=== PATIENT | male | born 1970 | race Caucasian/White ===

== ENCOUNTER 2021-07-21 19:08 | Emergency (ER) | payer MEDICAID, SELFPAY ==
--- NOTE | ~2021-07-21 | CT_ITS ---
EXAMINATION: CT ABDOMEN AND PELVIS WITH CONTRAST CLINICAL INFORMATION: Left upper quadrant pain. COMPARISON: CT abdomen pelvis July 17, 2021, July 19, 2021 TECHNIQUE: Multidetector volumetric images were obtained from the superior aspect of the liver through the pubic symphysis following administration 85 mL of Omnipaque 350 intravenous contrast. Sagittal and coronal reformatted images were obtained on the technologist's workstation. Oral contrast: No This CT examination was performed using dose optimization techniques as appropriate, variously including the following: *Automated exposure control *Adjustment of mA and/or kV according to patient size (this includes techniques or standardized protocols for targeted exams where dose is matched to indication/reason for exam; i.e. extremities or head) *Use of iterative reconstruction technique DLP: 659 mGy-cm FINDINGS: LUNG BASES: The visualized lung bases are unremarkable. LIVER, GALLBLADDER, AND BILIARY TREE: The liver is normal in size, shape, and attenuation. No focal hepatic lesion or biliary ductal dilatation is present. The gallbladder is unremarkable with no evidence of radiopaque gallstones, gallbladder wall thickening, or obvious pericholecystic inflammatory changes. PANCREAS: Unremarkable. SPLEEN: Unremarkable. ADRENAL GLANDS: Unremarkable. KIDNEYS AND URETERS: The kidneys are normal in size, shape, and attenuation. No hydronephrosis, hydroureter, or calculi seen. No perinephric stranding. BLADDER: Bladder is underdistended. Mild bladder wall thickening diffusely. No edema around the bladder. No bladder calculus or mass. GASTROINTESTINAL TRACT: The small and large bowel are unremarkable. The appendix is surgically absent. ABDOMINAL WALL: No significant hernia is appreciated. LYMPH NODES: Normal. VASCULAR: Unremarkable. PELVIC VISCERA: Prostate measures 4.6 cm transverse OSSEOUS STRUCTURES: Unremarkable. CT/CT abdomen pelvis w con IMPRESSION: No acute abnormality CT scan abdomen pelvis.
[2021-07-21 19:42] VITALS: BP 134/79; PULSE 75; RESP 18; TEMP 36.8; O2SAT 97; BMI 26.7
[2021-07-21 20:15] LABS: MANUAL DIFF FLAG NO
[2021-07-21 20:17] LABS: Glucose Urine UA NEG (NEG); Leukocyte Esterase Urine NEG (NEG); Nitrite Urine NEG (NEG); Specific Gravity - Urine >= 1.030 (1.005-1.025); Urine Blood NEG (NEG); Urine Ketones NEG (NEG); Urine Protein NEG (NEG-TRACE)
[2021-07-21 20:18] LABS: Basophils Absolute Auto 0.1 X10*3/uL (0.0-0.2); Basophils Percent Auto 0.9 % (0-2); Eosinophils Absolute Auto 0.2 X10*3/uL (0.0-0.4); Eosinophils Percent Auto 2.4 % (0-4); Hemoglobin 12.9 g/dl (14.0-18.0); Imm Gran Abs Auto 0.04 X10*3/uL (0.00-0.03); Imm Gran Pct Auto 0.5 % (0.0-0.4); Lymphocytes Absolute Auto 1.8 X10*3/uL (1.2-4.9); Lymphocytes Percent Auto 21.7 % (20-40); Mean Corpuscular HGB Conc 32.3 g/dl (31.0-36.0); Mean Corpuscular Hemoglobin 26.8 pg (27.0-33.0); Mean Corpuscular Volume 83.2 fL (80-98); Mean Platelet Volume 9.5 fL (9.4-12.4); Monocytes Absolute Auto 0.8 X10*3/uL (0.1-1.2); Monocytes Percent Auto 9.8 % (2-11); Neutrophils Absolute Auto 5.3 X10*3/uL (2.0-8.3); Neutrophils Percent Auto 64.7 % (45-73); Platelet Count 263 X10*3/uL (160-400); Red Blood Count 4.81 X10*6/uL (4.60-5.80); White Blood Count 8.2 X10*3/uL (4.8-10.8)
[2021-07-21 20:18] LABS: Appearance Urine HAZY; Color Urine YELLOW
[2021-07-21 20:41] LABS: Alanine Aminotransferase 19 U/L (0-40); Albumin Level 4.3 g/dL (3.5-5.0); Alkaline Phosphatase 81 U/L (39-117); Anion Gap 13 (12-20); Aspartate Amino Transferase 16 U/L (5-37); Bilirubin Direct < 0.2 mg/dL (0.0-0.5); Bilirubin Total 0.4 mg/dL (0.0-1.0); Blood Urea Nitrogen 10 mg/dL (9-16); Calcium 9.4 mg/dL (8.4-10.2); Carbon Dioxide 23 mmol/L (22-29); Chloride 107 mmol/L (96-108); Creatinine Clr Calc Pharmacy 79.3; Estimated Glomerular Filt Rate > 60; Glucose Random 95 mg/dL (60-115); Lipase 42 U/L (8-78); Potassium 4.3 mmol/L (3.3-5.1); Sodium 139 mmol/L (135-145); Total Protein 6.9 g/dL (6.5-8.0)
[2021-07-21 21:00] VITALS: BP 122/94; PULSE 81; RESP 18; TEMP 36.8; O2SAT 97
--- NOTE | 2021-07-21 21:26 | PC.NURSE ---
ophthalmic medical technician informed this nurse that pt was requesting pain medicine for worsening abdominal pain. this nurse informed pt that orders can be put in for Tylenol but pt stated he is allergic to Tylenol. this nurse informed pt that until he is seen by a provider stronger pain medicine could not be ordered. MD has not signed up for pt at this time. this nurse informed MD Martin) of pt pain.
[2021-07-21] MEDS: ondansetron HCL 4 MG/2 ML VIAL IVPUSH (21:40)
--- NOTE | 2021-07-21 21:42 | ED_ITS ---
HPI - Abdominal Pain General Chief Complaint: Abdominal Pain Stated Complaint: abd pain Time Seen by Provider: 07/21/21 21:36 Source: patient Mode of arrival: ambulatory History of Present Illness HPI narrative: 51-year-old male who presents with nausea, vomiting, diarrhea as well as reported left upper quadrant pain. Patient states that he was last seen at [facility] in [place] and at that time was diagnosed with C diff. This was on Saturday of this week. He denies any associated fever, chills, urinary symptoms. He was placed on antibiotic and states that he has been unable to keep food or water down but states that [place]. Related Data Previous Rx's Medication Instructions Recorded omeprazole 40 mg capsule,delayed 40 mg PO DAILY 30 Days #30 cap 07/22/21 release Allergies Allergy/AdvReac Type Severity Reaction Status Date / Time acetaminophen [From Tylenol] Allergy Angioedema Verified 07/21/21 19:41 diphenhydramine Allergy Rash Verified 07/21/21 19:41 [From Benadryl] ketorolac [From Toradol] Allergy Anaphylaxis Verified 07/21/21 19:41 Review of Systems Review of Systems Pertinent positives and negatives as stated in HPI 10 point review of systems is otherwise negative. Physical Exam Vital Signs: Vital Signs: Last Vital Signs Temp 98.3 F 07/21/21 22:18 Pulse 93 07/21/21 22:18 Resp 20 07/21/21 22:18 BP 125/80 07/21/21 22:18 Pulse Ox 98 07/21/21 22:18 Body Mass Index 26.7 VITAL SIGNS: Reviewed. GENERAL: Well developed, well nourished, in no acute distress. HEAD: Normocephalic/atraumatic EYES: PERRLA, EOMI LUNGS: Normal breath sounds. No adventitious sounds or accessory muscle use. SpO2<98> CARDIOVASCULAR: Regular rate and rhythm without noted murmurs ABDOMEN: Soft, mild tenderness in epigastrium,, non-distended with bowel sounds. SKIN: Inspection of the skin reveals no rashes NEUROLOGIC: Alert and oriented x 4. Strength and sensation to light touch were grossly intact x 4. Course Course Course Narrative: 51-year-old male with history and clinical presentation after review of all investigations consistent with likely gastritis. Patient was provided with additional antiemetics as well as IV fluids with good results on re-evaluation. Patient was then provided with a GI cocktail and discharged home in stable condition with instructions to follow-up with his primary care provider. MDM - Abdominal Pain Lab Data Result diagrams: 07/21/21 20:11 07/21/21 20:11 Labs: Lab Results 07/21/21 07/21/21 07/21/21 Range/Units 20:09 20:11 20:11 WBC 8.2 (4.8-10.8) X10*3/uL RBC 4.81 (4.60-5.80) X10*6/uL Hgb 12.9 L (14.0-18.0) g/dl Hct 40.0 L (42-52) % MCV 83.2 (80-98) fL MCH 26.8 L (27.0-33.0) pg MCHC 32.3 (31.0-36.0) g/dl RDW 13.0 (11.0-16.0) % Plt Count 263 (160-400) X10*3/uL MPV 9.5 (9.4-12.4) fL Immature Gran % (Auto) 0.5 H (0.0-0.4) % Neut % (Auto) 64.7 (45-73) % Lymph % (Auto) 21.7 (20-40) % [place] % (Auto) 9.8 (2-11) % Eos % (Auto) 2.4 (0-4) % Baso % (Auto) 0.9 (0-2) % Lymph # (Auto) 1.8 (1.2-4.9) X10*3/uL [place] # (Auto) 0.8 (0.1-1.2) X10*3/uL Eos # (Auto) 0.2 (0.0-0.4) X10*3/uL Baso # (Auto) 0.1 (0.0-0.2) X10*3/uL Abs Immat Gran (auto) 0.04 H (0.00-0.03) X10*3/uL Absolute Neuts (auto) 5.3 (2.0-8.3) X10*3/uL Absolute Nucleated RBC 0.000 (0.0-0.012) X10*3/uL Nucleated RBC % (auto) 0.0 (0.0-0.2) /100WBC Sodium 139 (135-145) mmol/L Potassium 4.3 (3.3-5.1) mmol/L Chloride 107 (96-108) mmol/L Carbon Dioxide 23 (22-29) mmol/L Anion Gap 13 (12-20) BUN 10 (9-16) mg/dL Creatinine 1.16 (0.5-1.4) mg/dL Estim Creat Clear Calc 79.3 Estimated GFR > 60 Random Glucose 95 (60-115) mg/dL Calcium 9.4 (8.4-10.2) mg/dL Total Bilirubin (0.0-1.0) mg/dL Direct Bilirubin (0.0-0.5) mg/dL AST (5-37) U/L ALT (0-40) U/L Alkaline Phosphatase (39-117) U/L Total Protein (6.5-8.0) g/dL Albumin (3.5-5.0) g/dL Lipase 42 (8-78) U/L Urine Color YELLOW Urine Appearance HAZY Urine pH 6.0 (5.0-8.0) Ur Specific [place] >= 1.030 H (1.005-1.025) Urine Protein NEG (NEG-TRACE) MG/DL Urine Glucose (UA) NEG (NEG) MG/DL Urine Ketones NEG (NEG) MG/DL Urine Blood NEG (NEG) Urine Nitrite NEG (NEG) Ur Leukocyte Esterase NEG (NEG) 07/21/21 Range/Units 20:11 WBC (4.8-10.8) X10*3/uL RBC (4.60-5.80) X10*6/uL Hgb (14.0-18.0) g/dl Hct (42-52) % MCV (80-98) fL MCH (27.0-33.0) pg MCHC (31.0-36.0) g/dl RDW (11.0-16.0) % Plt Count (160-400) X10*3/uL MPV (9.4-12.4) fL Immature Gran % (Auto) (0.0-0.4) % Neut % (Auto) (45-73) % Lymph % (Auto) (20-40) % [place] % (Auto) (2-11) % Eos % (Auto) (0-4) % Baso % (Auto) (0-2) % Lymph # (Auto) (1.2-4.9) X10*3/uL [place] # (Auto) (0.1-1.2) X10*3/uL Eos # (Auto) (0.0-0.4) X10*3/uL Baso # (Auto) (0.0-0.2) X10*3/uL Abs Immat Gran (auto) (0.00-0.03) X10*3/uL Absolute Neuts (auto) (2.0-8.3) X10*3/uL Absolute Nucleated RBC (0.0-0.012) X10*3/uL Nucleated RBC % (auto) (0.0-0.2) /100WBC Sodium (135-145) mmol/L Potassium (3.3-5.1) mmol/L Chloride (96-108) mmol/L Carbon Dioxide (22-29) mmol/L Anion Gap (12-20) BUN (9-16) mg/dL Creatinine (0.5-1.4) mg/dL Estim Creat Clear Calc Estimated GFR Random Glucose (60-115) mg/dL Calcium (8.4-10.2) mg/dL Total Bilirubin 0.4 (0.0-1.0) mg/dL Direct Bilirubin < 0.2 (0.0-0.5) mg/dL AST 16 (5-37) U/L ALT 19 (0-40) U/L Alkaline Phosphatase 81 (39-117) U/L Total Protein 6.9 (6.5-8.0) g/dL Albumin 4.3 (3.5-5.0) g/dL Lipase (8-78) U/L Urine Color Urine Appearance Urine pH (5.0-8.0) Ur Specific [place] (1.005-1.025) Urine Protein (NEG-TRACE) MG/DL Urine Glucose (UA) (NEG) MG/DL Urine Ketones (NEG) MG/DL Urine Blood (NEG) Urine Nitrite (NEG) Ur Leukocyte Esterase (NEG) Discharge Plan Discharge Clinical Impression: Gastritis Patient Disposition: Home, Self-Care Instructions: Gastritis (ED), Diet for Stomach Ulcers and Gastritis (ED) Additional Instructions: 1. Resume all home medications as prescribed. 2. Follow-up with your primary care provider in the next 1-2 days for re- evaluation. Return to the ER for acute worsening of symptoms. Prescriptions: New omeprazole 40 mg capsule,delayed release(DR/EC) 40 mg PO DAILY 30 Days Qty: 30 RF: 0 Referrals: Physician,Nonstaff [Primary Care Provider] - 2 days PMFSH Past Medical History Source: nursing notes reviewed Social History Social History Advance Directives: No Advance Directives Information Provided: Yes
[2021-07-21] MEDS: iohexoL 350 MG/ML 100 ML INFUS..BTL IV (21:45)
[2021-07-21] MEDS: 0.9 % Sodium Chloride 1,000 ML 999 ML IV (22:02)
[2021-07-21 22:18] VITALS: BP 125/80; PULSE 93; RESP 20; TEMP 36.8; O2SAT 98
[2021-07-21] MEDS: Famotidine/PF 20 MG/2 ML VIAL IVPUSH (23:14)
[2021-07-21] MEDS: Prochlorperazine Edisylate 10 MG/2 ML VIAL IVPUSH (23:16)
[2021-07-22] MEDS: Lidocaine HCl Viscous 2 % 15 ML SOLUTION 10 ML MUCOUS MEM (00:50)
[2021-07-22] MEDS: Magnesium Hydrox/Alum Hydrox 30 ML ORAL.SUSP PO (00:51)
== END 2021-07-22 00:54 | disposition home or self-care (01) ==
PROVIDERS: Emergency Provider Student in an Organized Health Care Education/Training Program
DX: K29.70 Gastritis, unspecified, without bleeding (principal); R11.2 Nausea with vomiting, unspecified; R10.12 Left upper quadrant pain
CPT/HCPCS: 36415; 74177; 80048; 80076; 81003; 83690; 85025; 96361; 96374; 96375; 99283; 99284; J2405; Q9967

== ENCOUNTER 2022-09-07 16:56 | Emergency (ER) | payer MEDICAID, SELFPAY ==
--- NOTE | 2022-09-07 | ECG_ITS ---
Test Reason : HYPERTENSION Blood Pressure : / mmHG Vent. Rate : 089 BPM Atrial Rate : 089 BPM P-R Int : 150 ms QRS Dur : 090 ms QT Int : 352 ms P-R-T Axes : 058 013 046 degrees QTc Int : 428 ms Normal sinus rhythm Normal ECG No previous ECGs available Referred By: Generic ED Physician Electronically Signed By:GILLIAN CESAR MD
[2022-09-07 18:00] VITALS: BP 135/103; PULSE 97; RESP 18; TEMP 37; O2SAT 96; BMI 25.2
--- NOTE | 2022-09-07 18:05 | PC.NURSE ---
patient refusing labs in triage
--- NOTE | 2022-09-07 19:51 | PC.NURSE ---
called patient no answer
--- NOTE | 2022-09-07 21:50 | PC.NURSE ---
pt called 3x and not in waiting area
--- OUTSIDE RECORDS SUMMARY | 2022-09-07 22:35 | XMS_ITS | Continuity of Care Document ---
:1970 Author Organization [facility] Address [address] [place] [address]- Care Team Providers Name Role Phone Not on Staff, PCP Primary Care Physician Unavailable Encounter [place] Date(s): 12/06/20 - 01/05/21 [facility] [address], [place] [address] Allergies, Adverse Reactions, Alerts Substance Reaction Severity Status acetaminophen1, 2 Active diphenhydrAMINE3 Active 1throat [id number] skin [id number] crawling Medications doxepin 75 mg oral capsule 1 capsule = 75 mg, By Mouth, Daily at bedtime, # 90 capsule, 0 Refills, Maintenance, 10/19/20 11:30:00 EST, Capsule, Partial fill upon patient request Start Date: 10/19/20 Status: OrderedFlomax 0.4 mg oral capsule 0.4 mg, 1, capsule, By Mouth, Daily, # 90 capsule, Refills 0, Maintenance, 10/19/20 11:29:00 EST, Partial fill upon patient request Start Date: 10/19/20 Status: OrderedFluconazole See Instructions, Maintenance, tAKE fLUCONAZOLE 400 MG LOADING DOSE, FOLLOWED BY 200 MG PO DAILY X 14 DAYS. nO REFILLS., 10/31/20 10:17:00 EST Start Date: 10/31/20 Status: OrderedSuboxone 8 mg-2 mg sublingual film 2 film, Sublingual, 3 times a day, 0 Refills, Maintenance, 10/19/20 11:31:00 EST, Partial fill upon patient request Start Date: 10/19/20 Status: OrderedtraZODone 100 mg oral tablet 100 mg, 1, tablet, By Mouth, 2 times a day, Refills 0, Maintenance, 10/19/20 11:30:00 EST, Partial fill upon patient request Start Date: 10/19/20 Status: Ordered
--- OUTSIDE RECORDS SUMMARY | 2022-09-07 22:35 | XMS_ITS | Continuity of Care Document ---
:1970 Author Organization [facility] Address [address] [place] [id number]- Care Team Providers Name Role Phone Not on Staff, PCP Primary Care Physician Unavailable [place] [facility] [place] - 01/25/[address] [address]- Discharge Disposition: A-D/C Walkout Attending Physician: Nohemy Galarza MD Admitting Physician: Nohemy Galarza MD Referring Physician: Not on Staff, Referring MD Allergies, Adverse Reactions, Alerts Substance Reaction Severity Status acetaminophen1, 2 Active Toradol Active diphenhydrAMINE3 Active 1throat [id number] skin [id number] crawling Immunizations Not Given Vaccine Date Status Refusal Reason pneumococcal 23-valent vaccine 02/05/21 Not Given P atient Refuses influenza virus vaccine, inactivated 02/05/21 Not Given Patient Refuses Medications Creon 36,000 units oral delayed release capsule 2 capsule, By Mouth, 3 times a day, 0 Refills, Maintenance, 01/12/22 14:35:00 EST, Partial fill uponpatient request if the prescription is for a schedule II opioid drug. Start Date: 01/12/22 Status: Ordereddicyclomine 20 mg oral tablet 0 Refills, Maintenance, 01/15/22 10:30:00 EST, Partial fill upon patient request if the prescriptionis for a schedule II opioid drug. Start Date: 01/15/22 Status: OrderedDuloxetine = 120 mg, By Mouth, Daily, 0 Refills, Maintenance, 11/21/21 5:56:00 EST, Partial fill upon patient request if the prescription is for a schedule II opioid drug. Start Date: 11/21/21 Status: OrderedFlomax 0.4 mg oral capsule 0.4 mg, 1, capsule, By Mouth, Daily, # 90 capsule, Refills 0, Maintenance, 02/22/21 0:10:00 EDT, Partial fill upon patient request if the prescription is for a schedule II opioid drug. Start Date: 02/22/21 Status: Orderedgabapentin 600 mg oral tablet 1 tablet = 600 mg, By Mouth, 3 times a day, # 270 tablet, 0 Refills, Maintenance, 01/12/22 15:50:00 EST, Tablet, Partial fill upon patient request if the prescription is for a schedule II opioid drug. Start Date: 01/12/22 Status: OrderedMelatonin = 6 mg, By Mouth, Daily at bedtime, 0 Refills, Maintenance, 11/21/21 5:55:00 EST, Partial fill upon patient request if the prescription is for a schedule II opioid drug. Start Date: 11/21/21 Status: Orderedomeprazole 40 mg oral enteric coated capsule 1 capsule = 40 mg, By Mouth, Daily, # 30 capsule, 0 Refills, Maintenance, 01/12/22 14:35:00 EST, EC Capsule, Partial fill upon patient request if the prescription is for a schedule II opioid drug. Start Date: 01/12/22 Status: OrderedtraZODone 100 mg oral tablet 100 mg, 1, tablet, By Mouth, Daily at bedtime, Refills 0, Maintenance, 10/19/20 11:30:00 EST, Partial fill upon patient request Start Date: 10/19/20 Status: OrderedZofran 4 mg oral tablet 1 tablet = 4 mg, By Mouth, Every 8 hours, PRN Nausea & Vomiting, # 10 tablet, 0 Refills, Maintenance, 01/15/22 10:31:00 EST, Tablet, [id number], Partial fill upon patient request if the prescription is for a schedule II opioid drug.,... Start Date: 01/15/22 Status: Ordered Problem List Condition Effective Dates Status Health Status Informant Chronic back pain(Confirmed) Active Anxiety and depression(Confirmed) Active Syncope(Confirmed) Active Vital Signs Most recent to oldest [Reference Range]: 1 Height 180 cm (01/24/22 11:18 PM) Weight 86 kg (01/24/22 11:18 PM) Oxygen Saturation [94-100 %] 98 % (01/24/22 11:18 PM) Pulse Rate [55-90 bpm] 88 bpm (01/24/22 11:18 PM) Blood Pressure [90-138/55-84 mm Hg] 138/102 mm Hg (01/24/22 11:18 PM) Respiratory Rate [16-30 br/min] 16 br/min (01/24/22 11:18 PM) Temperature [96.8-100.4 DegF] 98.7 DegF (01/24/22 11:18 PM) Temperature Route Oral (01/24/22 11:18 PM) Dry Weight 86 kg (01/24/22 11:18 PM) Social History Social History Type Response Smoking Status Never (less than 100 in life time) entered on: 02/22/21 Sex
--- OUTSIDE RECORDS SUMMARY | 2022-09-07 22:35 | XMS_ITS | Continuity of Care Document ---
:1970 Author Organization [facility] Address [address] [place] [address]- Care Team Providers Name Role Phone Not on Staff, PCP Primary Care Physician Unavailable Encounter [facility] [place] Date(s): 02/04/21 - 02/06/[address] [address]- Encounter Diagnosis Acute on chronic pancreatitis (Final) - 02/04/21 Discharge Disposition: A-D/C Home Attending Physician: Radha Gagnon MD Admitting Physician: Mesfin Bonilla MD Referring Physician: Not on Staff, Referring MD Allergies, Adverse Reactions, Alerts Substance Reaction Severity Status acetaminophen1, 2 Active Toradol Active diphenhydrAMINE3 Active 1throat [id number] skin lsarm2ppgd crawling Immunizations Not Given Vaccine Date Status Refusal Reason pneumococcal 23-valent vaccine 02/05/21 Not Given P atient Refuses influenza virus vaccine, inactivated 02/05/21 Not Given Patient Refuses Medications Dilaudid Inj 1 mg, Injection, IV Push Slowly, Every 4 hours, Hold for: sedation, lethargy, RR<12, PRN for Pain, Severe, Routine, 02/04/21 4:11:00 EST Start Date: 02/04/21 Stop Date: 02/11/21 Status: Ordereddoxepin 75 mg oral capsule 1 capsule = 75 mg, By Mouth, Daily at bedtime, # 90 capsule, 0 Refills, Maintenance, 10/19/20 11:30:00 EST, Capsule, Partial fill upon patient request Start Date: 10/19/20 Status: Orderedduloxetine 60 mg oral enteric coated capsule = 90 mg, By Mouth, Daily, # 30 capsule, 0 Refills, Maintenance, 02/04/21 4:16:00 EST, EC Capsule, Partial fill upon patient request if the prescription is for a schedule II opioid drug. Start Date: 02/04/21 Status: Orderedgabapentin 300 mg oral capsule 600 mg, Capsule, By Mouth, Hold for: sedation, 02/06/21 9:00:00 EDT Start Date: 02/06/21 Stop Date: 02/06/21 Status: Completedgabapentin 300 mg oral capsule 600 mg, Capsule, By Mouth, Hold for: sedation, 02/06/21 15:00:00 EDT Start Date: 02/06/21 Stop Date: 02/06/21 Status: Completedgabapentin 600 mg oral tablet 1 tablet = 600 mg, By Mouth, 3 times a day, # 270 tablet, 0 Refills, Maintenance, 02/04/21 4:16:00 EST, Tablet, Partial fill upon patient request if the prescription is for a schedule II opioid drug. Start Date: 02/04/21 Status: OrderedoxyCODONE 5 mg oral tablet 5 mg, 1, tablet, By Mouth, Every 6 hours, PRN, for 3 days, # 12 tablet, Refills 0, Tot. Refills 0, Acute 02/09/21 14:25:00 EDT, Pain , Severe, 02/06/21 14:25:00 EDT, Print Requisition, Partial fill upon patient request if the prescription is for a raman... Start Date: 02/06/21 Stop Date: 02/09/21 Status: OrderedtraZODone 100 mg oral tablet 100 mg, 1, tablet, By Mouth, Daily at bedtime, Refills 0, Maintenance, 10/19/20 11:30:00 EST, Partial fill upon patient request Start Date: 10/19/20 Status: OrderedZofran 4 mg oral tablet 1 tablet = 4 mg, By Mouth, Every 8 hours, PRN Nausea & Vomiting, # 10 tablet, 0 Refills, Maintenance, 02/06/21 14:25:00 EDT, Tablet, Partial fill upon patient request if the prescription is for a schedule II opioid drug. Start Date: 02/06/21 Status: Ordered Vital Signs Most recent to oldest 1 2 3 4 [Reference Range]: Height 180 cm 180 cm 180 cm (02/06/21 7:14 AM) (02/06/21 4:20 AM) (02/05/21 11:42 PM) Weight 88.5 kg 88.2 kg (02/04/21 4:21 AM) (02/04/21 4:12 AM) Oxygen Saturation 99 % 99 % 97 % [94-100 %] (02/06/21 7:14 AM) (02/06/21 4:20 AM) (02/05/21 11:42 PM) Pulse Rate [55-90 bpm] 68 bpm 54 bpm 67 bpm (02/06/21 7:14 AM) *L* (02/05/21 11:42 PM) (02/06/21 4:20 AM) Body Mass Index 27.31 [18.5-24.99] *H* (02/04/21 4:21 AM) Blood Pressure 110/72 mm Hg 106/62 mm Hg 117/83 mm Hg [90-138/55-84 mm Hg] (02/06/21 7:14 AM) (02/06/21 4:20 AM) (02/05/21 1 1:42 PM) Respiratory Rate [16-30 18 br/min 18 br/min 18 br/min 18 b r/min br/min] (02/06/21 3:59 PM) (02/06/21 1:27 PM) (02/06/21 9:02 AM) (02/06/21 9:02 AM) Temperature [96.8-100.4 97.7 DegF 97.4 DegF 98.4 DegF DegF] (02/06/21 7:14 AM) (02/06/21 4:20 AM) (02/05/21 11:42 PM) Mode of Delivery Room air Room air Room air (Oxygen) (02/06/21 7:14 AM) (02/05/21 11:42 PM) (02/05/21 7:06 PM) Blood pressure sites Arm, right Arm, right Arm, right (02/06/21 7:14 AM) (02/06/21 4:20 AM) (02/05/21 11:42 PM) Temperature Route Oral Oral Oral (02/06/21 7:14 AM) (02/06/21 4:20 AM) (02/05/21 11:42 PM) Dry Weight 88.5 kg (02/04/21 4:21 AM)
--- OUTSIDE RECORDS SUMMARY | 2022-09-07 22:35 | XMS_ITS | Continuity of Care Document ---
:1970 Author Organization [facility] nter Address [address] [place] [id number]- Care Team Providers Name Role Phone Not on Staff, PCP Primary Care Physician Unavailable Encounter [facility] [place] Date(s): 05/27/21 - 05/28/[address] [address]- Encounter Diagnosis Chronic pancreatitis (Final) - 05/28/21 Discharge Disposition: A-D/C Home Attending Physician: Charles Orona MD Admitting Physician: Charles Orona MD Referring Physician: Not on Staff, Referring MD Allergies, Adverse Reactions, Alerts Substance Reaction Severity Status acetaminophen1, 2 Active diphenhydrAMINE3 Active Toradol Active 1throat [id number] skin [id number] crawling Immunizations Not Given Vaccine Date Status Refusal Reason pneumococcal 23-valent vaccine 02/05/21 Not Given P atient Refuses influenza virus vaccine, inactivated 02/05/21 Not Given Patient Refuses Medications Bentyl 10 mg oral capsule 2 capsule, By Mouth, 2 times a day, # 80 capsule, 0 Refills, Maintenance, 05/12/21 0:46:00 EDT, Capsule, Partial fill upon patient request if the prescription is for a schedule II opioid drug. Start Date: 05/12/21 Stop Date: 05/22/21 Status: Ordereddicyclomine 20 mg oral tablet 1 tablet = 20 mg, By Mouth, 2 times a day, # 60 tablet, 0 Refills, Maintenance, 03/01/21 12:11:00 EDT, Tablet, [id number], Partial fill upon patient request if the prescription is for a schedule II opioid drug., 180, cm, 02/22/21 2:24... Start Date: 03/01/21 Status: Ordereddoxepin 75 mg oral capsule 1 capsule = 75 mg, By Mouth, Daily at bedtime, # 90 capsule, 0 Refills, Maintenance, 10/19/20 11:30:00 EST, Capsule, Partial fill upon patient request Start Date: 10/19/20 Status: Orderedduloxetine 30 mg oral enteric coated capsule 3 capsule = 90 mg, By Mouth, Daily, do not crush or chew, 0 Refills, Maintenance, 02/28/21 14:16:00 EDT, CR Capsule, Partial fill upon patient request if the prescription is for a schedule II opioid drug. Start Date: 02/28/21 Status: Orderedfamotidine 10 mg oral tablet 1 tablet = 10 mg, By Mouth, 3 times a day, # 28 tablet, 0 Refills, Maintenance, 05/12/21 0:47:00 EDT, Tablet, Partial fill upon patient request if the prescription is for a schedule II opioid drug. Start Date: 05/12/21 Status: OrderedFlomax 0.4 mg oral capsule 0.8 mg, 2, capsule, By Mouth, Daily, # 90 capsule, Refills 0, Maintenance, 02/22/21 0:10:00 EDT, Partial fill upon patient request if the prescription is for a schedule II opioid drug. Start Date: 02/22/21 Status: Orderedgabapentin 800 mg oral tablet 1 tablet = 800 mg, By Mouth, 3 times a day, 0 Refills, Maintenance, 05/02/21 11:24:00 EDT, Partial fill upon patient request if the prescription is for a schedule II opioid drug. Start Date: 05/02/21 Status: OrderedImitrex Inj Once, PRN Migraine Headache, Uses only if Cambia does not work., 0 Refills, Maintenance, 05/02/21 11:28:00 EDT, Partial fill upon patient request if the prescription is for a schedule II opioid drug. Start Date: 05/02/21 Status: Orderedlidocaine 5% topical film 1 patch, Topically, Daily, PRN Pain , Mild, remove after 12 hours, Maintenance, 02/28/21 14:08:00 EDT, Film, Partial fill upon patient request if the prescription is for a schedule II opioid drug. Start Date: 02/28/21 Status: Orderedmetoclopramide 10 mg oral tablet 1 tablet = 10 mg, By Mouth, PRN Dyspepsia, Maintenance, 02/28/21 14:08:00 EDT, Tablet, Partial fill upon patient request if the prescription is for a schedule II opioid drug. Start Date: 02/28/21 Stop Date: 03/07/21 Status: OrderedtraZODone 100 mg oral tablet 200 mg, By Mouth, Daily at bedtime, Refills 0, Maintenance, 10/19/20 11:30:00 EST, Partial fill uponpatient request Start Date: 10/19/20 Status: OrderedZofran 4 mg oral tablet 1 tablet = 4 mg, By Mouth, Every 8 hours, PRN Nausea & Vomiting, # 10 tablet, 0 Refills, Maintenance, 02/06/21 14:25:00 EDT, Tablet, Partial fill upon patient request if the prescription is for a schedule II opioid drug. Start Date: 02/06/21 Status: Ordered Problem List Condition Effective Dates Status Health Status Informant Chronic back pain(Confirmed) Active Anxiety and depression(Confirmed) Active Syncope(Confirmed) Active Results Radiology Reports Exam Date Time Procedure Performing Provider Status 05/28/21 2:37 AM Chest Portable Jordan Tyler; Auth (Verifie d) Notes:(Chest Portable) Reason For Exam: Shortness of BreathRESULT: Chest Portable Chest Portable Hx of Present Illness: RUQ px N V D x 4 days, fever of 103.2 until today. No tylenol or ibprofen taken due to allergies; Reason: Shortness of Breath; Clinical Question(s): CHF COMPARISON: 05/02/2021 FINDINGS: LINES AND TUBES: Loop recorder device is noted. LUNGS AND PLEURA: Minimal bibasilar subsegmental atelectasis. No pleural effusion. No pneumothorax. HEART, MEDIASTINUM AND RIRI: Heart is normal in size. Normal upper mediastinal and hilar contour. BONES AND SOFT TISSUES: No acute abnormality. IMPRESSION: No acute abnormality. WSN: [id number] Ordering Physician: Charles Orona Dictated By: Pablo Veliz MD Dictated Date/Time: 05/28/21 8:34 am Reviewed By: Pablo Veliz MD Signed By: Pablo Veliz MD Signed Date/Time: 05/28/21 8:34 am Transcribed By: MAURA Transcribed Date/Time: 05/28/21 8:33 am Vital Signs Most recent to oldest [Reference 1 2 3 Range]: Height 180 cm (05/27/21 11:25 PM) Weight 88.6 kg (05/27/21 11:25 PM) Oxygen Saturation [94-100 %] 98 % 97 % 96 % (05/28/21 6:40 AM) (05/28/21 4:26 AM) (05/28/21 2:18 A M) Pulse Rate [55-90 bpm] 61 bpm 70 bpm 77 bpm (05/28/21 6:40 AM) (05/28/21 4:26 AM) (05/28/21 2:18 A M) Blood Pressure [90-138/55-84 mm 103/84 mm Hg 108/73 mm Hg 123/81 mm Hg Hg] (05/28/21 6:40 AM) (05/28/21 4:26 AM) (05/28/21 2:18 A M) Respiratory Rate [16-30 br/min] 16 br/min 16 br/min 18 br/min (05/28/21 6:40 AM) (05/28/21 4:26 AM) (05/28/21 2:18 A M) Temperature [96.8-100.4 DegF] 97.5 DegF 98.1 DegF (05/28/21 6:40 AM) (05/27/21 11:25 PM) Mode of Delivery (Oxygen) Room air Room air Room a ir (05/28/21 6:40 AM) (05/28/21 4:26 AM) (05/28/21 2:18 A M) Temperature Route Oral Oral (05/28/21 6:40 AM) (05/27/21 11:25 PM) Dry Weight 88.6 kg (05/27/21 11:25 PM) Weight Obtained Via Standing scale (05/27/21 11:25 PM) Social History Social History Type Response Smoking Status Never (less than 100 in life time) entered on: 02/22/21 Sex
--- OUTSIDE RECORDS SUMMARY | 2022-09-07 22:35 | XMS_ITS | Continuity of Care Document ---
:1970 Author Organization [facility] nter Address [address] [place] [address]- Care Team Providers Name Role Phone Not on Staff, PCP Primary Care Physician Unavailable Encounter [facility] [place] Date(s): 11/21/21 - 11/21/[address] [address]- Discharge Disposition: A-D/C Home Attending Physician: Johnnie Stratton MD Admitting Physician: Johnnie Stratton MD Referring Physician: Not on Staff, Referring MD Allergies, Adverse Reactions, Alerts Substance Reaction Severity Status acetaminophen1, 2 Active diphenhydrAMINE3 Active Toradol Active 1throat [id number] skin qgghb3jkhb crawling Immunizations Not Given Vaccine Date Status [...] Start Date: 05/12/21 Stop Date: 05/22/21 Status: OrderedDuloxetine = 120 mg, By Mouth, Daily, 0 Refills, Maintenance, 11/21/21 5:56:00 EST, Partial fill upon patient request if the prescription is for a schedule II opioid drug. Start Date: 11/21/21 Status: Orderedfamotidine 10 mg oral tablet 1 [...] II opioid drug. Start Date: 02/28/21 Status: OrderedMelatonin = 6 mg, By Mouth, Daily at bedtime, 0 Refills, Maintenance, 11/21/21 5:55:00 EST, Partial fill upon patient request if the prescription is for a schedule II opioid drug. Start Date: 11/21/21 Status: Orderedmetoclopramide 10 mg oral tablet 1 tablet = 10 mg, By Mouth, PRN Dyspepsia, Maintenance, 02/28/21 14:08:00 EDT, Tablet, Partial fill upon patient request if the prescription is for a schedule II opioid drug. Start Date: 02/28/21 Stop Date: 03/07/21 Status: OrderedMorPHINE Inj 4 mg, Injection, IV Push Slowly, Every 5 minutes for 3 doses/times, PRN for Pain , Moderate, and SBPgreater than 100, Routine, 11/21/21 6:00:00 EST, Stop date Limited # of times Start Date: 11/21/21 Stop Date: 11/21/21 Status: CompletedOxycodone = 10 mg, By Mouth, 3 times a day, PRN Pain , Moderate, 0 Refills, Maintenance, 11/21/21 5:57:00 EST,Partial fill upon patient request if the prescription is for a schedule II opioid drug. Start Date: 11/21/21 Status: OrderedtraZODone 100 mg oral tablet 200 [...] Active Vital Signs Most recent to oldest 1 2 3 [Reference Range]: Height 180 cm 180 cm (11/21/21 7:36 AM) (11/21/21 4:56 AM) Weight 86 kg 86 kg (11/21/21 7:36 AM) (11/21/21 4:56 AM) Oxygen Saturation [94-100 98 % 98 % 97 % %] (11/21/21 11:00 AM) (11/21/21 9:43 AM) (11/21/21 7:36 AM) Pulse Rate [55-90 bpm] 63 bpm 66 bpm 67 bpm (11/21/21 11:00 AM) (11/21/21 9:43 AM) (11/21/21 7:36 AM) Body Mass Index 26.54 [18.5-24.99] *H* (11/21/21 7:36 AM) Blood Pressure 119/89 mm Hg 115/88 mm Hg 137/88 mm Hg [90-138/55-84 mm Hg] (11/21/21 11:00 AM) (11/21/21 9:43 AM) ( 7:36 AM) Respiratory Rate [16-30 13 br/min 17 br/min 20 br/mi n br/min] *L* (11/21/21 9:51 AM) (11/21/21 9:4 3 AM) (11/21/21 11:00 AM) Temperature [96.8-100.4 98.6 DegF 99 DegF 98.7 Deg F DegF] (11/21/21 11:00 AM) (11/21/21 7:36 AM) (11/21/21 4:56 AM) Mode of Delivery (Oxygen) Room air Room air Room a ir (11/21/21 11:00 AM) (11/21/21 9:43 AM) (11/21/21 7:36 AM) Blood pressure sites Arm, left Arm, left Arm, left (11/21/21 11:00 AM) (11/21/21 9:43 AM) (11/21/21 7:36 AM) Temperature Route Oral Oral Oral (11/21/21 11:00 AM) (11/21/21 7:36 AM) (11/21/21 7:00 AM) Dry Weight 86 kg 86 kg (11/21/21 7:36 AM) (11/21/21 4:56 AM) Social History Social History Type Response Smoking Status Never (less than 100 in life time) entered on: 02/22/21 Sex
--- OUTSIDE RECORDS SUMMARY | 2022-09-07 22:35 | XMS_ITS | Continuity of Care Document ---
:1970 Author Organization [facility] nter Address [address] [place] [address]- Care Team Providers Name Role Phone Not on Staff, PCP Primary Care Physician Unavailable Encounter [facility] [place] Date(s): 05/16/21 - 05/16/[address] [address]- Discharge Disposition: A-D/C Home Attending Physician: Brandin Gilmore MD Admitting Physician: Brandin Gilmore MD Referring Physician: Not on Staff, Referring MD Allergies, Adverse Reactions, Alerts Substance Reaction Severity Status acetaminophen1, 2 Active diphenhydrAMINE3 Active Toradol Active 1throat [id number] skin qqvrm6btiq crawling Immunizations Not Given Vaccine Date Status [...] 0 Refills, Maintenance, 03/01/21 12:11:00 EDT, Tablet, [id number], Partial fill upon patient request if the [...] , Moderate, and SBPgreater than 100, Routine, 05/16/21 18:37:00 EDT, Stop date Limited # of times Start Date: 05/16/21 Status: OrderedtraZODone 100 mg oral tablet 200 [...] [Reference Range]: Height 180 cm 180 cm (05/16/21 9:11 PM) (05/16/21 1:43 PM) Weight 89.7 kg 89.7 kg (05/16/21 9:11 PM) (05/16/21 1:43 PM) Oxygen Saturation [94-100 %] 95 % 95 % (05/16/21 9:11 PM) (05/16/21 1:43 PM) Pulse Rate [55-90 bpm] 77 bpm 80 bpm (05/16/21 9:11 PM) (05/16/21 1:43 PM) Body Mass Index [18.5-24.99] 27.69 *H* (05/16/21 9:11 PM) Blood Pressure [90-138/55-84 mm 110/70 mm Hg 129/82 mm Hg Hg] (05/16/21 9:11 PM) (05/16/21 1:43 PM) Respiratory Rate [16-30 br/min] 16 br/min 16 br/min 16 br/min (05/16/21 9:11 PM) (05/16/21 8:56 PM) (05/16/21 7:0 8 PM) Temperature [96.8-100.4 DegF] 98.1 DegF 97.7 DegF (05/16/21 9:11 PM) (05/16/21 1:43 PM) Mode of Delivery (Oxygen) Room air Room air (05/16/21 9:11 PM) (05/16/21 1:43 PM) Temperature Route Oral Oral (05/16/21 9:11 PM) (05/16/21 1:43 PM) Dry Weight 89.7 kg 89.7 kg (05/16/21 9:11 PM) (05/16/21 1:43 PM) Weight Obtained Via Standing scale (05/16/21 1:43 PM) Social History Social History Type Response Smoking Status Never (less than 100 in life time) entered on: 02/22/21 Sex
--- OUTSIDE RECORDS SUMMARY | 2022-09-07 22:35 | XMS_ITS | Continuity of Care Document ---
:1970 Author Organization [facility] nter Address [address] [place] [address]- Care Team Providers Name Role Phone Not on Staff, PCP Primary Care Physician Unavailable [place] [facility] [place]/12/[place] - 05/14/[address] [address] Discharge Disposition: A-D/C Home Attending Physician: Danial Preston MD, Maribell Admitting Physician: David Wallace Referring Physician: Not on Staff, Referring MD Allergies, Adverse Reactions, Alerts Substance Reaction Severity Status acetaminophen1, 2 Active diphenhydrAMINE3 Active Toradol Active 1throat [id number] skin cedex0ivvz crawling Immunizations Not Given Vaccine Date Status [...] 0 Refills, Maintenance, 03/01/21 12:11:00 EDT, Tablet, [facility] #[id number], Partial fill upon patient request if the [...] opioid drug. Start Date: 02/22/21 Status: Orderedgabapentin 400 mg oral capsule 800 mg, Capsule, By Mouth, 05/14/21 15:00:00 EDT Start Date: 05/14/21 Stop Date: 05/14/21 Status: Completedgabapentin 400 mg oral capsule 800 mg, Capsule, By Mouth, 05/14/21 9:00:00 EDT Start Date: 05/14/21 Stop Date: 05/14/21 Status: Completedgabapentin 800 mg oral tablet 1 tablet = [...] 4 mg, Injection, IV Push Slowly, Every 4 hours, PRN for Pain , Severe, Routine, 05/12/21 1:13:00 EDT Start Date: 05/12/21 Stop Date: 05/15/21 Status: DiscontinuedtraZODone 100 mg oral tablet 200 mg, By [...] Height 180 cm 180 cm 180 cm (05/14/21 12:50 PM) (05/14/21 7:30 AM) (05/13/21 11 :22 PM) Weight 88.5 kg 86.4 kg 86.4 kg (05/12/21 12:41 AM) (05/11/21 9:43 PM) (05/11/21 5: 39 PM) Oxygen Saturation [94-100 %] 94 % 97 % 98 % (05/14/21 7:30 AM) (05/13/21 11:22 PM) (05/13/21 7: 22 PM) Pulse Rate [55-90 bpm] 66 bpm 62 bpm 65 bpm (05/14/21 7:30 AM) (05/13/21 11:22 PM) (05/13/21 7: 22 PM) Body Mass Index [18.5-24.99] 27.31 26.67 *H* *H* (05/12/21 12:41 AM) (05/11/21 9:43 PM) Blood Pressure [90-138/55-84 109/66 mm Hg 85/57 mm Hg 115 /72 mm Hg mm Hg] (05/14/21 12:50 PM) *L* (05/13/21 11:2 2 PM) (05/14/21 7:30 AM) Respiratory Rate [16-30 16 br/min 18 br/min 18 br/mi n br/min] (05/14/21 2:43 PM) (05/14/21 8:04 AM) (05/14/21 8:0 4 AM) Temperature [96.8-100.4 98.6 DegF 98.0 DegF 97.6 Deg F DegF] (05/14/21 7:30 AM) (05/13/21 11:22 PM) (05/13/21 7: 22 PM) Mode of Delivery (Oxygen) Room air Room air Room a ir (05/14/21 7:30 AM) (05/13/21 11:22 PM) (05/13/21 7: 22 PM) Blood pressure sites Arm, left Arm, left Arm, left (05/14/21 12:50 PM) (05/14/21 7:30 AM) (05/13/21 3: 20 PM) Temperature Route Oral Oral Oral (05/14/21 7:30 AM) (05/13/21 11:22 PM) (05/13/21 7: 22 PM) Dry Weight 86.486 kg 86.486 kg (05/11/21 9:43 PM) (05/11/21 5:39 PM) Weight Obtained Via Bed scale (05/12/21 12:41 AM) Social History Social History Type Response Smoking Status Never (less than 100 in life time) entered on: 02/22/21 Sex
--- OUTSIDE RECORDS SUMMARY | 2022-09-07 22:35 | XMS_ITS | Continuity of Care Document ---
:1970 Author Organization [facility] nter Address [address] [place] [id number]- Care Team Providers Name Role Phone Not on Staff, PCP Primary Care Physician Unavailable Encounter [facility] [place] Date(s): 06/13/21 - 06/14/[address] [address]- Discharge Disposition: A-D/C Home Attending Physician: Hortensia Payne DO Admitting Physician: Hortensia Payne DO Referring Physician: Not on Staff, Referring MD Allergies, Adverse Reactions, Alerts Substance Reaction Severity Status acetaminophen1, 2 Active diphenhydrAMINE3 Active Toradol Active 1throat peuams3Ltvnj skin ckwqd8dnzu crawling Immunizations Not Given Vaccine Date Status [...] 0 Refills, Maintenance, 03/01/21 12:11:00 EDT, Tablet, [facility] #[id number], Partial fill upon patient request if the [...] , Moderate, and SBPgreater than 100, Routine, 06/14/21 0:04:00 EDT, Stop date Limited # of times Start Date: 06/14/21 Stop Date: 06/14/21 Status: DiscontinuedtraZODone 100 mg oral tablet 200 [...] Anxiety and depression(Confirmed) Active Syncope(Confirmed) Active Results Orders for Microbiology Reports Name Date Blood Culture #2 06/14/21 Microbiology Reports TEST:Blood Culture, Second Order STATUS:Unauthenticated BODY SITE: SOURCE:Blood COLLECTED DATE/TIME:06/14/21 12:42 AMBlood Culture, Second Order SPECIMEN DESCRIPTION : BLOOD L ARM SPECIAL REQUESTS : NONE REPORT STATUS : PRELIMINARY REPORT Vital Signs Most recent to oldest 1 2 3 [Reference Range]: Height 180 cm 180 cm (06/14/21 1:59 AM) (06/13/21 11:03 PM) Weight 86.9 kg 86.9 kg (06/14/21 1:59 AM) (06/13/21 11:03 PM) Oxygen Saturation [94-100 %] 97 % 96 % 98 % (06/14/21 3:42 AM) (06/14/21 1:59 AM) (06/13/21 11: 03 PM) Pulse Rate [55-90 bpm] 79 bpm 78 bpm 91 bpm (06/14/21 3:42 AM) (06/14/21 1:59 AM) *H* (06/13/21 11:03 P M) Body Mass Index [18.5-24.99] 26.82 *H* (06/14/21 1:59 AM) Blood Pressure [90-138/55-84 127/87 mm Hg 128/91 mm Hg 125 /89 mm Hg mm Hg] (06/14/21 3:42 AM) (06/14/21 1:59 AM) (06/13/21 11: 03 PM) Respiratory Rate [16-30 18 br/min 18 br/min 18 br/mi n br/min] (06/14/21 3:42 AM) (06/14/21 1:59 AM) (06/14/21 1:5 5 AM) Temperature [96.8-100.4 DegF] 97.6 DegF 98.3 DegF 10 0.1 DegF (06/14/21 3:42 AM) (06/14/21 1:59 AM) (06/13/21 11: 03 PM) Mode of Delivery (Oxygen) Room air Room air Room a ir (06/14/21 3:42 AM) (06/14/21 1:59 AM) (06/13/21 11: 03 PM) Blood pressure sites Arm, left Arm, left (06/14/21 3:42 AM) (06/14/21 1:59 AM) Temperature Route Oral Oral Oral (06/14/21 3:42 AM) (06/14/21 1:59 AM) (06/13/21 11: 03 PM) Dry Weight 86.9 kg 86.9 kg (06/14/21 1:59 AM) (06/13/21 11:03 PM) Social History Social History Type Response Smoking Status Never (less than 100 in life time) entered on: 02/22/21 Sex
--- OUTSIDE RECORDS SUMMARY | 2022-09-07 22:35 | XMS_ITS | Continuity of Care Document ---
:1970 Author Organization [facility] nter Address [address] [place] [address]- Care Team Providers Name Role Phone Not on Staff, PCP Primary Care Physician Unavailable Encounter [facility] [place] Date(s): 05/02/21 - 05/05/[address] [address] Discharge Disposition: A-D/C Home Attending Physician: Ba URRUTIA, Blake Harrington Admitting Physician: Kyra URRUTIA, Jamel P Referring Physician: Not on Staff, Referring MD Allergies, Adverse Reactions, Alerts Substance Reaction Severity Status acetaminophen1, 2 Active diphenhydrAMINE3 Active Toradol Active 1throat ixwakj1Ofoff skin rxujl4bhut crawling Immunizations Not Given Vaccine Date Status Refusal Reason pneumococcal 23-valent vaccine 02/05/21 Not Given P atient Refuses influenza virus vaccine, inactivated 02/05/21 Not Given Patient Refuses Medications dicyclomine 20 mg oral tablet 1 tablet = 20 mg, By Mouth, 2 times a day, # 60 tablet, 0 Refills, Maintenance, 03/01/21 12:11:00 EDT, Tablet, [facility] #[id number], Partial fill upon patient request if the [...] II opioid drug. Start Date: 02/28/21 Status: OrderedFlomax 0.4 mg oral capsule 0.8 mg, 2, capsule, By Mouth, Daily, # 90 capsule, Refills 0, Maintenance, 02/22/21 0:10:00 EDT, Partial fill upon patient request if the prescription is for a schedule II opioid drug. Start Date: 02/22/21 Status: Orderedgabapentin 300 mg oral capsule 600 mg, Capsule, By Mouth, 05/05/21 9:00:00 EDT Start Date: 05/05/21 Stop Date: 05/05/21 Status: Completedgabapentin 800 mg oral tablet 1 [...] 1 tablet = 10 mg, By Mouth, 4 times a day, PRN Dyspepsia, Maintenance, 02/28/21 14:08:00 EDT, Tablet, [...] for Microbiology Reports Name Date Blood Culture 05/02/21 Blood Culture #2 05/02/21 Microbiology Reports TEST:Blood Culture, Second Order STATUS:Unauthenticated BODY SITE: SOURCE:Blood COLLECTED DATE/TIME:05/02/21 4:37 AMBlood Culture, Second Order SPECIMEN DESCRIPTION : BLOOD RT AC SPECIAL REQUESTS : NONE CULTURE : NO GROWTH 3 DAYS REPORT STATUS : PRELIMINARY REPORT TEST:Blood Culture STATUS:Unauthenticated BODY SITE: SOURCE:Blood COLLECTED DATE/TIME:05/02/21 4:34 AMBlood Culture SPECIMEN DESCRIPTION : BLOOD RT ARM SPECIAL REQUESTS : NONE CULTURE : NO GROWTH 3 DAYS REPORT STATUS : PRELIMINARY REPORT Radiology Reports Exam Date Time Procedure Performing Provider Status 05/02/21 4:46 AM Chest Portable Jordan Tyler; Christy (Katherine glez) Notes:(Chest Portable) Reason For Exam: Shortness of BreathRESULT: Chest Portable AP sitting portable chest dated May 02, 2021 at 0442 hours. Comparison films are from February 27, 2021. HISTORY: Left-sided pain. FINDINGS: The cardiac silhouette is within normal limits for size. The aorta is mildly unfolded. Some linear density is present at the right lung base. This may represent fluid or thickening in the minor fissure versus scarring or atelectasis. Some more findings marginated linear density is present atthe left lung base likely representing atelectasis or scarring. At the very lateral aspect of the left hemithorax there is some developing airspace infiltrates consistent with atelectasis or pneumonia. A cardiac loop recorder is noted. Minimal degenerative changes are noted in the spine. IMPRESSION: New infiltrate at the left lung base consistent with atelectasis or pneumonia. Scarring versus pleural thickening versus fluid in the minor fissure. Examination [id number]. Thank you for allowing me to participate in the care of this patient. WSN: [id number] Ordering Physician: Renate Lopes Dictated By: Albin Sharpe MD Dictated Date/Time: 05/02/21 8:47 am Reviewed By: Albin Sharpe MD Signed By: Albin Sharpe MD Signed Date/Time: 05/02/21 8:47 am Transcribed By: MAURA Transcribed Date/Time: 05/02/21 8:47 am Vital Signs Most recent to oldest 1 2 3 [Reference Range]: Height 180 cm 180 cm 180 cm (05/05/21 8:16 AM) (05/05/21 4:53 AM) (05/04/21 11: 34 PM) Weight 86.4 kg 86.4 kg (05/02/21 7:31 AM) (05/02/21 4:21 AM) Oxygen Saturation [94-100 %] 93 % 94 % 95 % *L* (05/05/21 4:53 AM) (05/04/21 11:34 PM) (05/05/21 8:16 AM) Pulse Rate [55-90 bpm] 66 bpm 72 bpm 73 bpm (05/05/21 8:16 AM) (05/05/21 4:53 AM) (05/04/21 11: 34 PM) Body Mass Index [18.5-24.99] 26.67 *H* (05/02/21 7:31 AM) Blood Pressure [90-138/55-84 93/75 mm Hg 99/81 mm Hg 106 /73 mm Hg mm Hg] (05/05/21 8:16 AM) (05/05/21 4:53 AM) (05/04/21 11: 34 PM) Respiratory Rate [16-30 16 br/min 18 br/min 16 br/mi n br/min] (05/05/21 9:57 AM) (05/05/21 8:57 AM) (05/05/21 8:1 6 AM) Temperature [96.8-100.4 DegF] 98.1 DegF 98.1 DegF 97 .9 DegF (05/05/21 8:16 AM) (05/05/21 4:53 AM) (05/04/21 11: 34 PM) Liters per Minute 0 L/min (05/03/21 12:51 AM) Mode of Delivery (Oxygen) Room air Room air Room a ir (05/05/21 8:16 AM) (05/05/21 4:53 AM) (05/04/21 11: 34 PM) Blood pressure sites Arm, right Arm, right Arm, right (05/05/21 8:16 AM) (05/05/21 4:53 AM) (05/04/21 11: 34 PM) Temperature Route Oral Oral Oral (05/05/21 8:16 AM) (05/05/21 4:53 AM) (05/04/21 11: 34 PM) Dry Weight 86.4 kg 86.4 kg (05/02/21 7:31 AM) (05/02/21 4:21 AM) Social History Social History Type Response Smoking Status Never (less than 100 in life time) entered on: 02/22/21 Sex
--- OUTSIDE RECORDS SUMMARY | 2022-09-07 22:35 | XMS_ITS | Continuity of Care Document ---
:1970 Author Organization [facility] Address [address] [place] [address]- Care Team Providers Name Role Phone Not on Staff, PCP Primary Care Physician Unavailable Encounter [facility] Date(s): 08/27/22 - 08/31/22 [facility] [address] [place] [id number] Encounter Diagnosis Chronic pancreatitis (Final) - 08/27/22 Intractable nausea and vomiting (Final) - 08/27/22 Discharge Disposition: A-D/C Home Attending Physician: [place] URRUTIA, [facility] Admitting Physician: Seema Cottrell DO Referring Physician: Not on Staff, Referring MD Allergies, Adverse Reactions, Alerts Substance Reaction Severity Status acetaminophen1, 2 Active Toradol Active diphenhydrAMINE3 Active 1throat [id number] skin [id number] crawling Immunizations Not Given Vaccine Date Status [...] II opioid drug. Start Date: 02/22/21 Status: OrderedMelatonin = 6 mg, By Mouth, Daily at bedtime, 0 Refills, Maintenance, 11/21/21 5:55:00 EST, Partial fill upon patient request if the prescription is for a schedule II opioid drug. Start Date: 11/21/21 Status: OrderedMorPHINE Inj 1 mg, Injection, IV Push Slowly, Every 6 hours, PRN for Pain , Moderate, Routine, 08/27/22 22:52:00 EDT Start Date: 08/27/22 Stop Date: 08/31/22 Status: Discontinuedondansetron 4 mg oral tablet 1 tablet = 4 mg, By Mouth, Every 8 hours, for 3 days, # 9 tablet, 0 Refills, Acute 09/03/22 10:29:00EDT, 08/31/22 10:29:00 EDT, Tablet, [facility] #[id number], Partial fill upon patient request if the prescription is for a schedule II opioid amada... Start Date: 08/31/22 Stop Date: 09/03/22 Status: OrderedoxyCODONE 5 mg oral tablet 5 mg, 1, tablet, By Mouth, Every 6 hours, PRN, for 2 days, # 8 tablet, Refills 0, Tot. Refills 0, Acute 09/02/22 10:28:00 EDT, for pain, 08/31/22 10:28:00 EDT, Print Requisition, Partial fill upon patient request if the prescription is for a schedule... Start Date: 08/31/22 Stop Date: 09/02/22 Status: OrderedtraZODone 100 mg oral tablet 100 mg, 1, tablet, By Mouth, Daily at bedtime, Refills 0, Maintenance, 10/19/20 11:30:00 EST, Partial fill upon patient request Start Date: 10/19/20 Status: OrderedZofran 4 mg oral tablet 1 tablet = 4 mg, By Mouth, Every 8 hours, PRN Nausea & Vomiting, # 10 tablet, 0 Refills, Maintenance, 01/15/22 10:31:00 EST, Tablet, [facility] #[id number], Partial fill upon patient request if the prescription is for a schedule II opioid drug.,... Start Date: 01/15/22 Status: Ordered Problem List Condition Confirmation Course Effective Dates Status Health Stat us Informant Chronic back pain Confirmed Active Anxiety and Confirmed Active depression Syncope Confirmed Active Vital Signs Most recent to oldest 1 2 3 [Reference Range]: Height 180 cm 180 cm 180 cm (08/31/22 5:58 AM) (08/30/22 8:44 PM) (08/30/22 2:5 4 PM) Weight 81 kg 84.0 kg (08/29/22 10:32 AM) (08/28/22 8:00 PM) Oxygen Saturation [94-100 %] 97 % 95 % 93 % (08/31/22 5:58 AM) (08/30/22 8:44 PM) *L* (08/30/22 2:54 PM ) Pulse Rate [55-90 bpm] 71 bpm 72 bpm 80 bpm (08/31/22 5:58 AM) (08/30/22 8:44 PM) (08/30/22 2:5 4 PM) Body Mass Index [18.5-24.99 25 kg/m2 25.93 kg/m2 kg/m2] *H* *H* (08/29/22 10:32 AM) (08/28/22 8:00 PM) Blood Pressure [90-138/55-84 104/65 mm Hg 106/64 mm Hg 117 /71 mm Hg mm Hg] (08/31/22 5:58 AM) (08/30/22 8:44 PM) (08/30/22 2:5 4 PM) Respiratory Rate [16-30 20 br/min 16 br/min 16 br/mi n br/min] (08/31/22 10:44 AM) (08/31/22 8:59 AM) (08/31/22 5: 58 AM) Temperature [96.8-100.4 DegF] 97.4 DegF 98.8 DegF 98 .2 DegF (08/31/22 5:58 AM) (08/30/22 8:44 PM) (08/30/22 2:5 4 PM) Mode of Delivery (Oxygen) Room air Room air Room a ir (08/31/22 5:58 AM) (08/30/22 8:44 PM) (08/30/22 2:5 4 PM) Blood pressure sites Arm, right Arm, right Arm, right (08/31/22 5:58 AM) (08/30/22 8:44 PM) (08/30/22 2:5 4 PM) Temperature Route Oral Oral Oral (08/31/22 5:58 AM) (08/30/22 8:44 PM) (08/30/22 2:5 4 PM) Dry Weight 81 kg 84.0 kg (08/29/22 10:32 AM) (08/28/22 8:00 PM) Weight Obtained Via Bed scale (08/28/22 8:00 PM) Dry Weight Obtained Via 98.1 Bed scale (08/29/22 10:32 AM) (08/28/22 8:00 PM) Social History Social History Type Response Smoking Status Never (less than 100 in life time) entered on: 02/22/21 Sex Patient Care team information PersonnelName: Not on Staff, PCP
--- OUTSIDE RECORDS SUMMARY | 2022-09-07 22:35 | XMS_ITS | Continuity of Care Document ---
:1970 Author Organization [facility] Address [address] [place] [address]- Care Team Providers Name Role Phone Not on Staff, PCP Primary Care Physician Unavailable Encounter [facility] Date(s): 07/03/21 - 07/04/[address] [address]- Discharge Disposition: A-D/C Walkout Attending Physician: Not on Staff, Attending MD Admitting Physician: Not on Staff, Admitting MD Referring Physician: Not on Staff, Referring MD Allergies, Adverse Reactions, Alerts Substance Reaction Severity Status acetaminophen1, 2 Active diphenhydrAMINE3 Active Toradol Active 1throat [id number] skin [id number] crawling Immunizations Not Given Vaccine Date Status [...] 0 Refills, Maintenance, 03/01/21 12:11:00 EDT, Tablet, [facility] #[id number], Partial fill upon patient request if the [...] Most recent to oldest [Reference Range]: 1 2 Oxygen Saturation [94-100 %] 100 % 98 % (07/03/21 7:55 PM) (07/03/21 7:06 PM) Pulse Rate [55-90 bpm] 95 bpm 119 bpm *H* *H* (07/03/21 7:55 PM) (07/03/21 7:06 PM) Blood Pressure [90-138/55-84 mm Hg] 125/92 mm Hg (07/03/21 7:55 PM) Respiratory Rate [16-30 br/min] 18 br/min (07/03/21 7:55 PM) Temperature [96.8-100.4 DegF] 98.3 DegF (07/03/21 7:55 PM) Mode of Delivery (Oxygen) Room air Room air (07/03/21 7:55 PM) (07/03/21 7:06 PM) Blood pressure sites Arm, right (07/03/21 7:55 PM) Temperature Route Oral (07/03/21 7:55 PM) Social History Social History Type Response Smoking Status Never (less than 100 in life time) entered on: 02/22/21 Sex
--- OUTSIDE RECORDS SUMMARY | 2022-09-07 22:35 | XMS_ITS | Continuity of Care Document ---
:1970 Author Organization [facility] Address [address] [place] [address]- Care Team Providers Name Role Phone Not on Staff, PCP Primary Care Physician Unavailable Encounter [facility] Date(s): 06/26/22 - 06/26/[address] [address]- Discharge Disposition: A-D/C Walkout Attending Physician: Not on Staff, Attending MD Admitting Physician: Not on Staff, Admitting MD Referring Physician: Not on Staff, Referring MD Allergies, Adverse Reactions, Alerts Substance Reaction Severity Status acetaminophen1, 2 Active diphenhydrAMINE3 Active Toradol Active 1throat [id number] skin [id number] crawling Immunizations Not Given Vaccine Date Status [...] 0 Refills, Maintenance, 01/15/22 10:31:00 EST, Tablet, [id number], Partial fill upon patient request if the prescription is for a schedule II opioid drug.,... Start Date: 01/15/22 Status: Ordered Problem List Condition Effective Dates Status Health Status Informant Chronic back pain(Confirmed) Active Anxiety and depression(Confirmed) Active Syncope(Confirmed) Active Vital Signs Most recent to oldest [Reference Range]: 1 2 Height 180 cm (06/26/22 6:48 PM) Weight 86.0 kg (06/26/22 6:48 PM) Oxygen Saturation [94-100 %] 100 % 98 % (06/26/22 6:48 PM) (06/26/22 6:37 PM) Pulse Rate [55-90 bpm] 76 bpm 95 bpm (06/26/22 6:48 PM) *H* (06/26/22 6:37 PM) Body Mass Index [18.5-24.99] 26.54 *H* (06/26/22 6:48 PM) Blood Pressure [90-138/55-84 mm Hg] 118/78 mm Hg (06/26/22 6:48 PM) Respiratory Rate [16-30 br/min] 16 br/min (06/26/22 6:48 PM) Temperature [96.8-100.4 DegF] 98.9 DegF (06/26/22 6:48 PM) Mode of Delivery (Oxygen) Room air (06/26/22 6:48 PM) Blood pressure sites Arm, right (06/26/22 6:48 PM) Temperature Route Oral (06/26/22 6:48 PM) Weight Obtained Via Patient/family stated (06/26/22 6:48 PM) Social History Social History Type Response Smoking Status Never (less than 100 in life time) entered on: 02/22/21 Sex
--- OUTSIDE RECORDS SUMMARY | 2022-09-07 22:35 | XMS_ITS | Continuity of Care Document ---
:1970 Author Organization [facility] Address [address] [place] [address]- Care Team Providers Name Role Phone Not on Staff, PCP Primary Care Physician Unavailable Encounter [facility] Date(s): 02/28/21 - 03/01/[address] [address]- Encounter Diagnosis Paresthesias (Final) - 02/28/21 Discharge Disposition: A-D/C Home Attending Physician: Qasim Lua MD Admitting Physician: Mary Veliz MD Referring Physician: Not on Staff, Referring MD Allergies, Adverse Reactions, Alerts Substance Reaction Severity Status acetaminophen1, 2 Active diphenhydrAMINE3 Active Toradol Active 1throat [id number] skin jssft5ilzr crawling Immunizations Not Given Vaccine Date Status Refusal Reason pneumococcal 23-valent vaccine 02/05/21 Not Given P atient Refuses influenza virus vaccine, inactivated 02/05/21 Not Given Patient Refuses Medications aspirin 81 mg oral tablet, chewable 81 mg, 1, tablet, By Mouth, Daily, # 90 tablet, Refills 0, Tot. Refills 0, Maintenance, 03/01/21 12:14:00 EDT, Route to Pharmacy Electronically, [facility] #[id number], Partial fill upon patient request if the prescription is for a schedule II op... Start Date: 03/01/21 Status: Ordereddicyclomine 20 mg oral tablet 1 tablet = 20 mg, By Mouth, 2 times a day, # 60 tablet, 0 Refills, Maintenance, 03/01/21 12:11:00 EDT, Tablet, [facility] #[id number], Partial fill upon patient request if the [...] II opioid drug. Start Date: 02/28/21 Status: Orderedduloxetine 60 mg oral enteric coated capsule 1 capsule = 60 mg, By Mouth, Daily, 0 Refills, Maintenance, 02/04/21 4:16:00 EST, EC Capsule, Partial fill upon patient request if the prescription is for a schedule II opioid drug. Start Date: 02/04/21 Status: OrderedFlomax 0.4 mg oral capsule 0.8 mg, 2, capsule, By Mouth, Daily, # 90 capsule, Refills 0, Maintenance, 02/22/21 0:10:00 EDT, Partial fill upon patient request if the prescription is for a schedule II opioid drug. Start Date: 02/22/21 Status: Orderedgabapentin 300 mg oral capsule 600 mg, Capsule, By Mouth, 03/01/21 9:00:00 EDT Start Date: 03/01/21 Stop Date: 03/01/21 Status: Completedgabapentin 600 mg oral tablet 1 tablet = 600 mg, By Mouth, 3 times a day, # 270 tablet, 0 Refills, Maintenance, 02/04/21 4:16:00 EST, Tablet, Partial fill upon patient request if the prescription is for a schedule II opioid drug. Start Date: 02/04/21 Status: Orderedlidocaine 5% topical film 1 patch, Topically, Daily, PRN Pain , Mild, remove after 12 hours, Maintenance, 02/28/21 14:08:00 EDT, Film, Partial fill upon patient request if the prescription is for a schedule II opioid drug. Start Date: 02/28/21 Status: Orderedmetoclopramide 10 mg oral tablet 1 tablet = 10 mg, By Mouth, 4 times a day, Maintenance, 02/28/21 14:08:00 EDT, Tablet, Partial fill upon patient request if the prescription is for a schedule II opioid drug. Start Date: 02/28/21 Stop Date: 03/07/21 Status: Orderedpolyethylene glycol 3350 oral powder for reconstitution = 17 Gm, By Mouth, Daily, dissolve in water before taking, 0 Refills, Maintenance, 02/28/21 14:14:00EDT, REC Powder, Partial fill upon patient request if the prescription is for a schedule II opioid drug. Start Date: 02/28/21 Status: OrderedSenna Plus 1 tablet, By Mouth, Daily at bedtime, 0 Refills, Maintenance, 02/28/21 14:13:00 EDT, Partial fill upon patient request if the prescription is for a schedule II opioid drug. Start Date: 02/28/21 Status: OrderedtraZODone 100 mg oral tablet 200 [...] opioid drug. Start Date: 02/06/21 Status: Ordered Results Radiology Reports Exam Date Time Procedure Performing Provider Status 02/27/21 11:02 PM Chest Portable Corazon Fountain; Christy ([facility] ed) Notes:(Chest Portable) Reason For Exam: Stroke;Other:RESULT: Chest Portable Chest Portable Hx of Present Illness: reports 3-4 hours ago feeling dizzy, ataxic, sob, chest tightness rad to leftjaw and arm, room spinning, ataxic gait; Reason: Other:; Stroke; Clinical Question(s): CHF COMPARISON: None. FINDINGS: LINES AND TUBES: None. LUNGS AND PLEURA: Low lung volumes with mild basilar atelectasis. Lungs are otherwise clear with no consolidation. No pleural effusion. No pneumothorax. HEART, MEDIASTINUM AND RIRI: Heart is normal in size. Normal upper mediastinal and hilar contour. Implanted loop recorder. BONES AND SOFT TISSUES: No acute abnormality. IMPRESSION: No acute abnormality. Low lung volumes and bibasilar atelectasis. WSN: [id number] Ordering Physician: Katie Arizmendi Dictated By: Osmani Medina MD Dictated Date/Time: 02/27/21 11:04 p Reviewed By: Osmani Medina MD Signed By: Osmani Medina MD Signed Date/Time: 02/27/21 11:04 pm Transcribed By: MAURA Transcribed Date/Time: 02/27/21 11:03 pm Vital Signs Most recent to oldest [Reference 1 2 3 Range]: Oxygen Saturation [94-100 %] 98 % 97 % 99 % (03/01/21 12:16 PM) (03/01/21 10:08 AM) (03/01/21 8:38 AM) Pulse Rate [55-90 bpm] 88 bpm 85 bpm 81 bpm (03/01/21 12:16 PM) (03/01/21 10:08 AM) (03/01/21 8:38 AM) Blood Pressure [90-138/55-84 mm 121/79 mm Hg 103/77 mm Hg 111/86 mm Hg Hg] (03/01/21 12:16 PM) (03/01/21 10:08 AM) (03/01/21 8:38 AM) Respiratory Rate [16-30 br/min] 17 br/min 18 br/min 16 br/min (03/01/21 12:16 PM) (03/01/21 10:08 AM) (03/01/21 8:41 AM) Temperature [96.8-100.4 DegF] 97.9 DegF 98.7 DegF 97 .4 DegF (03/01/21 8:38 AM) (03/01/21 6:16 AM) (03/01/21 3:31 A M) Mode of Delivery (Oxygen) Room air Room air Room a ir (03/01/21 12:16 PM) (03/01/21 10:08 AM) (03/01/21 8:38 AM) Blood pressure sites Arm, right Arm, left Arm, left (03/01/21 12:16 PM) (03/01/21 10:08 AM) (03/01/21 8:38 AM) Temperature Route Oral Oral Oral (03/01/21 8:38 AM) (03/01/21 6:16 AM) (03/01/21 3:31 A M) Social History Social History Type Response Smoking Status Never (less than 100 in life time) entered on: 02/22/21 Sex
--- OUTSIDE RECORDS SUMMARY | 2022-09-07 22:36 | XMS_ITS | Continuity of Care Document ---
:1970 Author Organization [facility] Address [address] [place] [id number]- Care Team Providers Name Role Phone Not on Staff, PCP Primary Care Physician Unavailable Encounter [facility] [place] Date(s): 01/15/22 - 01/15/[address] [address] Encounter Diagnosis Chronic pancreatitis (Final) - 01/11/22 Discharge Disposition: A-D/C Home Attending Physician: Radha Gagnon MD Admitting Physician: Vitaliy URRUTIA, Marci Vincent Referring Physician: Not on Staff, Referring MD Allergies, Adverse Reactions, Alerts Substance Reaction Severity Status acetaminophen1, 2 Active Toradol Active diphenhydrAMINE3 Active 1throat [id number] skin vactj1lmvu crawling Immunizations Not Given Vaccine Date Status [...] II opioid drug. Start Date: 01/15/22 Status: OrderedDilaudid Inj 1 mg, Injection, IV Push Slowly, Every 4 hours, PRN for Pain , Severe, Routine, 01/14/22 9:39:00 EST Start Date: 01/14/22 Stop Date: 01/15/22 Status: DiscontinuedDuloxetine = 120 mg, By Mouth, Daily, 0 [...] II opioid drug. Start Date: 01/12/22 Status: OrderedoxyCODONE 10 mg oral tablet 1 tablet = 10 mg, By Mouth, Every 6 hours, PRN Pain , Severe, for 5 days, # 20 tablet, 0 Refills, Acute 01/20/22 10:31:00 EST, 01/15/22 10:31:00 EST, Tablet, [facility] #[id number], Partial fill upon patient request if the prescription is for a s... Start Date: 01/15/22 Stop Date: 01/20/22 Status: OrderedtraZODone 100 mg oral tablet 100 mg, 1, tablet, By Mouth, Daily at bedtime, Refills 0, Maintenance, 10/19/20 11:30:00 EST, Partial fill upon patient request Start Date: 10/19/20 Status: OrderedZofran 4 mg oral tablet 1 tablet = 4 mg, By Mouth, Every 8 hours, PRN Nausea & Vomiting, # 10 tablet, 0 Refills, Maintenance, 01/15/22 10:31:00 EST, Tablet, [id number], Partial fill upon patient request if the prescription is for a schedule II opioid drug.,... Start Date: 01/15/22 Status: Ordered Problem List Condition Effective Dates Status Health Status Informant Chronic back pain(Confirmed) Active Anxiety and depression(Confirmed) Active Syncope(Confirmed) Active Results Radiology Reports Exam Date Time Procedure Performing Provider Status 01/12/22 9:29 AM Abdomen AP Aishwarya Ramseya; Auth (Verified ) Notes:(Abdomen AP) Reason For Exam: Admitted with abdomen pain, h/o chronic pancreatitis, r/o obstruction/peforation;PainRESULT: XR Abdomen AP XR Abdomen AP 1 view INDICATION/CLINICAL QUESTION: Reason: Abdominal pain. Clinical Question(s): Rule out obstruction. COMPARISON: CT abdomen/pelvis 06/14/2021. FINDINGS: Normal bowel gas pattern. No evidence of obstruction. Suboptimal evaluation for free air in the supine position. No organomegaly, masses or abnormal calcifications. No acute bone findings. IMPRESSION: No evidence of acute bowel obstruction. Suboptimal evaluation for pneumoperitoneum in the supine position. I have personally reviewed the images and I agree with this report. WSN: [id number] Ordering Physician: Jeffery Bear Dictated By: Christina Cooper DO Dictated Date/Time: 01/12/22 11:11 a Reviewed By: Edd Cunha MD, V Signed By: Edd Cunha MD, V Signed Date/Time: 01/12/22 11:16 am Transcribed By: MAURA Transcribed Date/Time: 01/12/22 10:57 am Vital Signs Most recent to oldest 1 2 3 [Reference Range]: Oxygen Saturation [94-100 %] 96 % 99 % 97 % (01/15/22 11:18 AM) (01/15/22 7:39 AM) (01/15/22 4: 23 AM) Pulse Rate [55-90 bpm] 83 bpm 71 bpm 53 bpm (01/15/22 11:18 AM) (01/15/22 7:39 AM) *L* (01/15/22 4:23 AM ) Blood Pressure [90-138/55-84 101/71 mm Hg 102/72 mm Hg 107 /56 mm Hg mm Hg] (01/15/22 11:18 AM) (01/15/22 7:39 AM) (01/15/22 4: 23 AM) Respiratory Rate [16-30 18 br/min 18 br/min 18 br/mi n br/min] (01/15/22 12:05 PM) (01/15/22 11:18 AM) (01/15/22 9 :37 AM) Temperature [96.8-100.4 DegF] 97.7 DegF 97.4 DegF 98 .2 DegF (01/15/22 11:18 AM) (01/15/22 7:39 AM) (01/15/22 4: 23 AM) Mode of Delivery (Oxygen) Room air Room air Room a ir (01/15/22 11:18 AM) (01/15/22 7:39 AM) (01/15/22 4: 23 AM) Blood pressure sites Arm, left Arm, left Arm, left (01/15/22 11:18 AM) (01/15/22 7:39 AM) (01/15/22 4: 23 AM) Temperature Route Oral Oral Oral (01/15/22 11:18 AM) (01/15/22 7:39 AM) (01/15/22 4: 23 AM) Social History Social History Type Response Smoking Status Never (less than 100 in life time) entered on: 02/22/21 Sex
== END 2022-09-07 22:57 | disposition left against medical advice (07) ==
LOC: HO.ED 22:34
PROVIDERS: Emergency Provider Emergency Medicine
DX: R10.13 Epigastric pain (principal); I10 Essential (primary) hypertension; Z79.899 Other long term (current) drug therapy
CPT/HCPCS: 93005; 99283

== ENCOUNTER 2023-06-23 23:03 | Emergency (ER) | payer MEDICAID, SELFPAY ==
[2023-06-23 23:12] VITALS: BP 126/90; PULSE 91; RESP 18; TEMP 36.2; O2SAT 96; BMI 27.8
[2023-06-23 23:24] LABS: MANUAL DIFF FLAG NO
[2023-06-23 23:27] LABS: Basophils Absolute Auto 0.1 X10*3/uL (0.0-0.2); Eosinophils Absolute Auto 0.2 X10*3/uL (0.0-0.4); Hematocrit 44.3 % (42.0-52.0); Hemoglobin 14.6 g/dl (14.0-18.0); Imm Gran Abs Auto 0.04 X10*3/uL (0.00-0.03); Imm Gran Pct Auto 0.4 % (0.0-0.4); Lymphocytes Absolute Auto 2.1 X10*3/uL (1.2-4.9); Lymphocytes Percent Auto 21.6 % (20-40); Mean Corpuscular Hemoglobin 26.4 pg (27.0-33.0); Mean Platelet Volume 9.7 fL (9.4-12.4); Monocytes Absolute Auto 0.9 X10*3/uL (0.1-1.2); Monocytes Percent Auto 8.8 % (2-11); Neutrophils Absolute Auto 6.4 x10*3/uL (2.0-8.3); Neutrophils Percent Auto 66.2 % (45-73); Platelet Count 237 X10*3/uL (160-400); Red Blood Count 5.54 X10*6/uL (4.60-5.80); Red Cell Distribution Width 14.3 % (11.0-16.0); White Blood Count 9.7 X10*3/uL (4.8-10.8)
[2023-06-23 23:43] LABS: Alanine Aminotransferase 11 U/L (0-40); Albumin Level 4.2 g/dL (3.5-5.0); Alkaline Phosphatase 76 U/L (39-117); Anion Gap 15 (12-20); Aspartate Amino Transferase 10 U/L (5-37); Bilirubin Direct 0.2 mg/dL (0.0-0.5); Bilirubin Total 0.7 mg/dL (0.0-1.0); Blood Urea Nitrogen 9 mg/dL (9-16); Calcium 9.1 mg/dL (8.4-10.2); Carbon Dioxide 20 mmol/L (22-29); Chloride 109 mmol/L (96-108); Creatinine Clr Calc Pharmacy 103.4; Estimated Glomerular Filt Rate > 60; Glucose Random 108 mg/dL (60-115); Lipase 34 U/L (8-78); Potassium 4.1 mmol/L (3.3-5.1); Sodium 140 mmol/L (135-145)
[2023-06-24 00:26] VITALS: BP 137/89; PULSE 89; RESP 18
[2023-06-24 00:47] LABS: Appearance Urine Clear; Color Urine Yellow; Glucose Urine UA Negative (Negative); Leukocyte Esterase Urine Trace (Negative); Nitrite Urine Negative (Negative); Specific Gravity - Urine 1.025 (1.005-1.025); UMIC TRIGGER UACC YES; Urine Blood Negative (Negative); Urine Ketones Trace mg/dL (Negative); Urine Protein Trace mg/dL (Neg-Trace)
--- OUTSIDE RECORDS SUMMARY | 2023-06-24 00:48 | XMS_ITS | Continuity of Care Document ---
Author Name Unknown Organization [facility] Address [address] [place] [address]- Care Team Providers Care Waste Chopper Name Role Phone Not on Staff, PCP Primary Care Physician Unavail able Encounter [facility] [place] Date(s): 09/07/22 - 09/08/[address] [address]- Encounter Diagnosis Abdominal pain(Final) - 09/08/22 Discharge Disposition: A-D/C Home Attending Physician: Elda Heart MD Admitting Physician: Elda Heart MD Referring Physician: Not on Staff, Referring MD Allergies, Adverse Reactions, Alerts Substance Reaction Severity Status acetaminophen 1, 2 Active Toradol Active diphenhydrAMINE 3 Active 1throat closes 2Makes skin crawl 3skin crawling Immunizations Not Given Vaccine Date Status Refusal Reason pneumococcal 23-valent vaccine 02/05/21 Not Given Patient Refuses influenza virus vaccine, inactivated 02/05/21 Not Given Patient Refuses Medications Creon 36,000 units oral delayed release capsule 2 capsule, By Mouth, 3 times a day, 0 Refills, Maintenance, 01/12/22 14:35:00 EST, Partial fill upon patient request if the prescription is for a schedule II opioid drug. Start Date: 01/12/22 Status: Ordered dicyclomine 20 mg oral tablet 0 Refills, Maintenance, 01/15/22 10:30:00 EST, Partial fill upon patient request if the prescription is for a schedule II opioid drug. Start Date: 01/15/22 Status: Ordered Duloxetine = 120 mg, By Mouth, Daily, 0 Refills, Maintenance, 11/21/21 5:56:00 EST, Partial fill upon patient request if the prescription is for a schedule II opioid drug. Start Date: 11/21/21 Status: Ordered Flomax 0.4 mg oral capsule 0.4 mg, 1, capsule, By Mouth, Daily, # 90 capsule, Refills 0, Maintenance, 02/22/21 0:10:00 EDT, Partial fill upon patient request if the prescription is for a schedule II opioid drug. Start Date: 02/22/21 Status: Ordered Melatonin = 6 mg, By Mouth, Daily at bedtime, 0 Refills, Maintenance, 11/21/21 5:55:00 EST, Partial fill uponpatient request if the prescription is for a schedule II opioid drug. Start Date: 11/21/21 Status: Ordered MorPHINE Inj 4 mg, Injection, IV Push Slowly, Once, STAT, 09/07/22 21:32:00 EDT, Stop date 09/07/22 21:32:00 EDT Start Date: 09/07/22 Stop Date: 09/07/22 Status: Completed MorPHINE Inj 4 mg, Injection, IV Push Slowly, Once, STAT, 09/07/22 22:58:00 EDT, Stop date 09/07/22 22:58:00 EDT Start Date: 09/07/22 Stop Date: 09/08/22 Status: Completed traZODone 100 mg oral tablet 100 mg, 1, tablet, By Mouth, Daily at bedtime, Refills 0, Maintenance, 10/19/20 11:30:00 EST, Partial fill upon patient request Start Date: 10/19/20 Status: Ordered Zofran 4 mg oral tablet 1 tablet = 4 mg, By Mouth, Every 8 hours, PRN Nausea & Vomiting, # 10 tablet, 0 Refills, Maintenance, 01/15/22 10:31:00 EST, Tablet, [facility] #[id number], Partial fill upon patient requestif the prescription is for a schedule II opioid drug.,... Start Date: 01/15/22 Status: Ordered Problem List Condition Confirmation Course Effective Dates Status Health St atus Informant Chronic back pain Confirmed Active Anxiety and depression Confirmed Active Syncope Confirmed Active Vital Signs Most recent to oldest [Reference Range]: 1 2 3 Height 180 cm (09/08/22 12:11 AM) 180 cm (09/07/22 8:26 PM) Weight 86 kg (09/08/22 12:11 AM) 86 kg (09/07/22 8:26 PM) Oxygen Saturation [94-100 %] 97 % (09/08/22 12:11 AM) 99 % (09/07/22 8:26 PM) Pulse Rate [55-90 bpm] 75 bpm (09/08/22 12:11 AM) 94 bpm *H* (09/07/22 8:26 PM) Body Mass Index [18.5-24.99 kg/m2] 26.54 kg/m2 *H* (09/08/22 12:11 AM) Blood Pressure [90-138/55-84 mm Hg] 121/86mm Hg (09/08/22 12:11 AM) 121/93mm Hg (09/07/22 8:26 PM) Respiratory Rate [16-30 br/min] 16 br/min (09/08/22 12:12 AM) 16 br/min (09/08/22 12:11 AM) 18 br/min (09/07/22 9:46 PM) Temperature [96.8-100.4 DegF] 98.6 DegF (09/07/22 8:26 PM) Mode of Delivery (Oxygen) room air (09/08/22 12:11 AM) Room air (09/07/22 8:26 PM) Blood pressure sites Arm, right (09/07/22 8:26 PM) Temperature Route Temporal (09/07/22 8:26 PM) Dry Weight 86 kg (09/08/22 12:11 AM) 86 kg (09/07/22 8:26 PM) Social History Social History Type Response Smoking Status Never (less than 100 in lifetime) entered on: 02/22/21 Sex Patient Care team information Personnel Name: Not on Staff, PCP
[2023-06-24 01:03] LABS: Bacteria Urine None Seen (None Seen); Hyaline Casts Urine 0-2 /LPF (0-2); RBC Urine 0-2 /HPF (0-2); Squamous Epithelial Cell Urine 0-2 /HPF (0-2); WBC Urine 0-5 /HPF (0-5)
--- NOTE | 2023-06-24 02:35 | PC.NURSE ---
pt left room without notifying staff. aware
== END 2023-06-24 02:36 | disposition left against medical advice (07) ==
PROVIDERS: Emergency Provider Emergency Medicine Emergency Medical Services
DX: R10.9 Unspecified abdominal pain (principal); R11.2 Nausea with vomiting, unspecified
CPT/HCPCS: 36415; 80048; 80076; 81001; 83690; 85025; 99283; 99284